=== PATIENT | male | born 1995 | race Caucasian/White ===

== ENCOUNTER 2023-02-21 12:14 | Outpatient (CLI) | payer OTHER, SELFPAY ==
[2023-02-21 13:54] LABS: Liquefaction Semen Complete in 30 min. (<30 minutes); Semen Viscosity Not Increased (Not Increa.); Volume Semen 3.5 mL (1.5-5.0); pH Semen 7.5 (7.2-8.0)
[2023-02-21 13:55] LABS: Semen Color Opaque (Grey-opaque); Semen Immotility 10 %; Semen Morphology Result to Follow; Semen Non-Progressive Motility 20 %; Semen Progressive Motility 60 % (>32); Semen Total Motility 80 (>40% (PM+NP)); Sperm Count 64.8 Mil/mL (60-150 million/mL)
[2023-02-24 22:17] LABS: Fructose, Semen 265 mg/dL (150-600)
== END 2023-02-21 12:15 | disposition home or self-care (01) ==
LOC: CHSLAB 12:21
PROVIDERS: Visit Provider Nurse Practitioner Women's Health
DX: Z31.41 Encounter for fertility testing (principal)
CPT/HCPCS: 82757; 88160; 89320